=== PATIENT | female | born 1990 | race African-American/Black ===

== ENCOUNTER 2022-11-30 10:39 | Emergency (ER) | payer BC, SELFPAY ==
[2022-11-30 11:04] VITALS: BP 118/81; PULSE 87; RESP 16; TEMP 36.9; O2SAT 100
[2022-11-30 12:43] LABS: Anion Gap 7 mmol/L (8-16); Blood Urea Nitrogen 15 mg/dL (7-17); Calcium 9.6 mg/dL (8.4-10.2); Carbon Dioxide 28 mmol/L (22-30); Chloride 103 mmol/L (98-107); Estimated CRCL calculation 91 ml/min; Estimated Glomerular Filt Rate > 60; Glucose 85 mg/dL (65-110); Sodium 138 mmol/L (137-145)
--- NOTE | 2022-11-30 13:42 | ED.GENADULT ---
HPI - General Adult General Chief complaint: Unspecified Stated complaint: numbness in left and buttocks Time Seen by Provider: 11/30/22 11:12 History of Present Illness HPI narrative: Patient is a 32-year-old female who presents ER with cramps to left shoulder and buttock. Ongoing over the last couple days. Began shortly after starting a new [id number] contraceptive pill which she has decided to discontinue taking today. No swelling of the arm or leg but she was concerned she could potentially have blood clot. She has no previous history of blood clots. She has no trauma to her neck or back or leg. She does report she was dancing last night when she started cramping again and felt it radiate down her left leg. No history of chronic back pain or injury. Her left shoulder has been getting some cramps and then she will feel some tingling down her left arm as well. Related Data Allergies Allergy/AdvReac Type Severity Reaction Status Date / Time diphenhydramine AdvReac Rash Verified 11/30/22 11:06 [From Benadryl] Review of Systems Review of Systems: All systems reviewed & are unremarkable except as noted in HPI and below Constitutional: Constitutional: Denies chills and Denies fever(s) Musculoskeletal: Musculoskeletal: Reports myalgias, Reports muscle cramps and Reports radiating pain into limb Neurologic: Denies syncope, Denies focal weakness and Reports tingling PMFSH Past Medical History Medical History (Updated 11/30/22 @ 19:12 by Joshua Bryant MD) Healthy female adult Surgical History Surgical History (Updated 11/30/22 @ 19:12 by Joshua Bryant MD) No history of previous surgery Exam Narrative: GENERAL: Well-appearing, well-nourished, and in no acute distress. HEAD: Normocephalic, atraumatic. ENT: Mucous membranes moist. NECK: Supple. CHEST: Clear to auscultation. No respiratory distress. HEART: Regular rate and rhythm. Normal peripheral pulses. Back: No midline tenderness to T/L-spine. There is muscle cramping of the left trapezius musculature that reproduces patient's discomfort. EXTREMITIES: Normal range of motion. No edema. No tenderness to the buttock/SI region/greater trochanteric region. SKIN: Warm, dry, no rash. NEURO: Alert and oriented x3. PSYCH: Normal mood and affect. Course Course Emergency Course: Patient resting comfortably. She does not wish to receive any muscle relaxants for home. She does not take pills and will only take children's Tylenol. Discussed hydration. Patient verbalized understanding. Discharge home. Vital Signs Vital signs: Vital Signs Temperature 98.4 F 11/30/22 11:04 Pulse Rate 87 11/30/22 11:04 Respiratory Rate 16 11/30/22 11:04 Blood Pressure 118/81 11/30/22 11:04 Pulse Oximetry 100 11/30/22 11:04 Temperature 98.4 F 11/30/22 11:04 Pulse Rate 87 11/30/22 11:04 Respiratory Rate 16 11/30/22 11:04 Blood Pressure 118/81 11/30/22 11:04 Pulse Oximetry 100 11/30/22 11:04 Medical Decision Making Vital Signs Vital Signs: Vital Signs Temperature 98.4 F 11/30/22 11:04 Pulse Rate 87 11/30/22 11:04 Respiratory Rate 16 11/30/22 11:04 Blood Pressure 118/81 11/30/22 11:04 Pulse Oximetry 100 11/30/22 11:04 Temperature 98.4 F 11/30/22 11:04 Pulse Rate 87 11/30/22 11:04 Respiratory Rate 16 11/30/22 11:04 Blood Pressure 118/81 11/30/22 11:04 Pulse Oximetry 100 11/30/22 11:04 Lab Data 11/30/22 12:18 Labs: Lab Results 11/30/22 Range/Units 12:18 Sodium 138 (137-145) mmol/L Potassium 4.0 (3.4-5.0) mmol/L Chloride 103 (98-107) mmol/L Carbon Dioxide 28 (22-30) mmol/L Anion Gap 7 L (8-16) mmol/L BUN 15 (7-17) mg/dL Creatinine 0.60 L (0.7-1.0) mg/dL Estim Creat Clear Calc 91 ml/min Estimated GFR > 60 (59 - ) Glucose 85 (65-110) mg/dL Calcium 9.6 (8.4-10.2) mg/dL Magnesium 2.0 (1.6-2.3) mg/dL
== END 2022-11-30 13:51 | disposition home or self-care (01) ==
PROVIDERS: Emergency Provider Emergency Medicine
DX: M54.12 Radiculopathy, cervical region (principal); R25.2 Cramp and spasm
CPT/HCPCS: 36415; 80048; 83735; 99283